=== PATIENT | male | born 1980 ===

== ENCOUNTER 2025-02-14 15:45 | Outpatient (CLI) | payer BC, SELFPAY | END 2025-02-14 15:46 | disposition home or self-care (01) | PROVIDERS: PCP Family Medicine; Visit Provider Family Medicine | DX: Z00.00 Encounter for general adult medical examination without abnormal findings (principal); M54.50 Low back pain, unspecified; Z13.228 Encounter for screening for other metabolic disorders; Z13.6 Encounter for screening for cardiovascular disorders | CPT/HCPCS: 80048; 80061; 84460; 85025 ==